=== PATIENT | male | born 1990 | race Caucasian/White ===

== ENCOUNTER 2023-01-12 18:56 | Emergency (ER) | payer MEDICAID ==
[~2023-01-12] VITALS: Ht 175.3 cm; Wt 109.1 kg
[2023-01-12 19:19] VITALS: BP 134/78
[2023-01-12 19:22] LABS: BASOPHILS # (AUTO) 0.1 X10'3 (0-0.2); BASOPHILS % (AUTO) 0.7 % (0-1); EOSINOPHILS # (AUTO) 0.2 X10'3 (0-0.9); EOSINOPHILS % (AUTO) 2.5 % (0-6); HEMATOCRIT 44.8 % (42.0-52.0); HEMOGLOBIN 15.6 g/dl (14.0-17.9); LYMPHOCYTES % (AUTO) 39.8 % (21-51); MEAN CORPUSCULAR HEMOGLOBIN 33.9 PG (27.0-31.0); MEAN CORPUSCULAR HGB CONC 34.8 g/dL (33.0-36.5); MEAN CORPUSCULAR VOLUME 97.2 FL (78-98); MEAN PLATELET VOLUME 8.3 FL (7.4-10.4); MONOCYTES # (AUTO) 0.9 X10'3 (0-0.9); MONOCYTES % (AUTO) 11.9 % (2-12); NEUTROPHILS # (AUTO) 3.4 X10'3 (1.8-7.7); NEUTROPHILS % (AUTO) 45.1 % (42-75); PLATELET COUNT 191 X10'3 (140-440); RED BLOOD COUNT 4.61 X10'6 (4.70-6.10); RED CELL DISTRIBUTION WIDTH 13.9 % (11.5-14.5); WHITE BLOOD COUNT 7.5 X10'3 (4.5-11.0)
[2023-01-12 19:30] LABS: ALANINE AMINOTRANSFERASE 74 U/L (12-78); ALBUMIN 4.1 G/DL (3.4-5.0); ALBUMIN/GLOBULIN RATIO 0.9 (1.1-1.5); ALKALINE PHOSPHATASE 147 IU/L (46-116); ANION GAP 12 (8-16); ASPARTATE AMINO TRANSFERASE 141 U/L (10-37); BILIRUBIN,TOTAL 0.3 MG/DL (0.1-1.0); BLOOD UREA NITROGEN 7 MG/DL (7-18); BUN/CREATININE RATIO 9.3 (5.4-32.0); CALCIUM 8.9 MG/DL (8.5-10.1); CHLORIDE 101 MMOL/L (99-107); CREATININE 0.75 MG/DL (0.60-1.10); GLUCOSE 166 MG/DL (70-104); POTASSIUM 3.4 MMOL/L (3.5-5.1); SODIUM 141 MMOL/L (135-145); TOTAL CARBON DIOXIDE 27.9 MMOL/L (24-32); TOTAL PROTEIN 8.8 G/DL (6.4-8.2); eGFR > 90 ML/MIN
[2023-01-12 19:38] LABS: MAGNESIUM 2.1 MG/DL (1.5-2.4)
== END 2023-01-13 00:04 | disposition left against medical advice (07) ==
LOC: ER 18:57
DX: R06.02 Shortness of breath (principal); Z53.21 Procedure and treatment not carried out due to patient leaving prior to being seen by health care provider
CPT/HCPCS: 36415; 71045; 80053; 83735; 83880; 84484; 85025; 93005; 99281

== ENCOUNTER 2024-10-01 09:32 | Day surgery (SDC) | payer MEDICAID ==
[2024-09-28 16:50] LABS: BASOPHILS % (AUTO) 0.8 % (0-1); EOSINOPHILS # (AUTO) 0.3 X10'3 (0-0.9); EOSINOPHILS % (AUTO) 5.3 % (0-6); LYMPHOCYTES # (AUTO) 2.2 X10'3 (1.1-4.8); LYMPHOCYTES % (AUTO) 35.4 % (21-51); MEAN CORPUSCULAR HEMOGLOBIN 33.1 PG (27.0-31.0); MEAN CORPUSCULAR VOLUME 97.4 FL (78-98); MEAN PLATELET VOLUME 8.7 FL (7.4-10.4); MONOCYTES # (AUTO) 0.7 X10'3 (0-0.9); MONOCYTES % (AUTO) 11.4 % (2-12); NEUTROPHILS # (AUTO) 2.9 X10'3 (1.8-7.7); NEUTROPHILS % (AUTO) 47.1 % (42-75); PRE OP HEMATOCRIT 41.5 % (42.0-52.0); PRE OP HEMOGLOBIN 14.1 g/dL (14.0-17.9); PRE OP PLATELET COUNT 258 X10'3 (140-440); PRE OP WHITE BLOOD COUNT 6.2 10'3 (4.8-10.8); RED BLOOD COUNT 4.26 X10'6 (4.70-6.10); RED CELL DISTRIBUTION WIDTH 12.8 % (11.5-14.5)
[2024-09-28 16:59] LABS: ALBUMIN 4.3 G/DL (3.4-5.0); ALBUMIN/GLOBULIN RATIO 1.1 (1.1-1.5); ALKALINE PHOSPHATASE 74 IU/L (46-116); BLOOD UREA NITROGEN 20 MG/DL (7-18); BUN/CREATININE RATIO 20.6 (10.0-20.0); CALCIUM 8.8 MG/DL (8.5-10.1); CHLORIDE 104 MMOL/L (99-107); CREATININE 0.97 MG/DL (0.60-1.10); PRE OP ALT 26 U/L (30-65); PRE OP ANION GAP 10 (8-16); PRE OP AST 21 U/L (10-37); PRE OP BILIRUB, TOTAL 0.4 MG/DL (0.0-1.0); PRE OP GLUCOSE 98 MG/DL (70-104); PRE OP POTASSIUM 4.1 MMOL/L (3.4-5.1); PRE OP SODIUM 140 MMOL/L (135-145); TOTAL CARBON DIOXIDE 25.6 MMOL/L (24-32); TOTAL PROTEIN 8.3 G/DL (6.4-8.2); eGFR 88 ML/MIN
[~2024-10-01] VITALS: Ht 172.7 cm; Wt 106.5 kg
[~2024-10-01 09:32] MED LIST: ALBU8HFA PO; MELO-102 PO; NICO-687 TOP; QUET300T20 PO; ringers solution, lacted 1,000 ML IV SCH
[2024-10-01 09:50] VITALS: BP 136/78; PULSE 71; RESP 16; TEMP 98.5; O2SAT 98
[2024-10-01] MEDS: famotidine 20mg tablet PO ONE (10:04)
[2024-10-01] MEDS ORDERED: midazolam 1 mg/ML 2ml injection ONE (10:45)
[2024-10-01] MEDS ORDERED: propofol inj 20 ML IV ONE (10:45)
[2024-10-01] MEDS ORDERED: rocuronium 10mg/ml inj IV ONE (10:45)
[2024-10-01] MEDS ORDERED: fentaNYL/PF 50MCG/1 ML 2ML syringe ONE (10:45)
[2024-10-01] MEDS ORDERED: sevoflurane 250ml liquid IH ONE (10:49)
[2024-10-01] MEDS ORDERED: epiNEPHrine 1 MG/ML 1 ml ampule **BRONCH ONLY ONE (11:14)
[2024-10-01] MEDS ORDERED: LIDOCAINE 4% (40MG/ML) topical solution 50ml **BRONCH ONLY ONE (11:15)
[2024-10-01] MEDS ORDERED: ondansetron/PF 4mg/2ml inj IV PRN (11:25)
[2024-10-01] MEDS ORDERED: meperidine/PF 25mg/ml syringe IV PRN ×3 (11:25)
[2024-10-01] MEDS ORDERED: proCHLORperazine 10 MG/2 ml inj IV PRN (11:25)
[2024-10-01] MEDS ORDERED: ringers solution, lacted 1,000 ML IV SCH (11:25)
[2024-10-01] MEDS ORDERED: morphine 4 MG/ML inj SYRINge IV PRN (11:25)
[2024-10-01] MEDS ORDERED: glycopyrrolate 0.2mg/ml inj ONE (11:28)
[2024-10-01] MEDS ORDERED: neostigmine methylsulfate 1 MG/ML 10ml vial ONE (11:28)
[2024-10-01] MEDS ORDERED: dexamethasone sod phosphate 4mg/ml inj. ONE (11:29)
[2024-10-01] MEDS ORDERED: ondansetron/PF 4mg/2ml inj ONE (11:30)
[2024-10-01 11:48] VITALS: BP 127/48; PULSE 92; RESP 16; O2SAT 100
[2024-10-01] MEDS ORDERED: morphine 2 MG/ML inj. syringe IV PRN (11:50)
[2024-10-01] MEDS ORDERED: sugammadex 200mg/2ml injection IV ONE (11:53)
[2024-10-01 12:00] VITALS: BP 103/73; PULSE 90; RESP 21; O2SAT 97
[2024-10-01] MEDS: morphine 2 MG/ML inj. syringe IV PRN (12:01)
[2024-10-01 12:10] VITALS: BP 111/75; PULSE 75; RESP 17; O2SAT 97
[2024-10-01 17:14] LABS: BAL APPEARANCE HAZY; BAL COLOR COLORLESS; BAL EOS CT 0 %; BAL RBC 95 /CU MM; BAL WBC 73 /CU MM
== END 2024-10-01 12:28 | disposition home or self-care (01) ==
LOC: PAS 09:32
PROVIDERS: ATTEND Internal Medicine Critical Care Medicine
DX: R22.2 Localized swelling, mass and lump, trunk (principal); J43.9 Emphysema, unspecified; E66.9 Obesity, unspecified; I50.9 Heart failure, unspecified; G47.30 Sleep apnea, unspecified; F41.9 Anxiety disorder, unspecified; F32.A Depression, unspecified; F17.200 Nicotine dependence, unspecified, uncomplicated; Z79.899 Other long term (current) drug therapy; Z96.643 Presence of artificial hip joint, bilateral; Z98.890 Other specified postprocedural states; Z68.35 Body mass index [BMI] 35.0-35.9, adult; Z80.9 Family history of malignant neoplasm, unspecified
CPT/HCPCS: 31622; 31624; 31625; 31627; 31628; 31653; 31654; 36415; 71045; 71250; 80053; 82948; 85025; 87070; 89051; 93005; 94760; A4618; J0171; J1100; J2250; J2270; J2405; J2704; J2710; J3010; J3490; J7120